=== PATIENT | male | born 1970 | race African-American/Black ===

== ENCOUNTER 2017-06-03 07:38 | Emergency (ER) | payer BC ==
[~2017-06-03] VITALS: Ht 180.3 cm; Wt 116.6 kg
[2017-06-03 08:10] LABS: HEMATOCRIT 44.1 % (38.0-50.0); MCH 27.2 PG (29.0-34.0); MCHC 33.1 G/DL (30.0-36.0); MCV 82.3 FL (86-99); RBC DIS.WIDTH-CV 13.1 % (11.8-14.6); RBC DIS.WIDTH-SD 39.1 % (39-53); RED BLOOD COUNT 5.36 M/uL (4.00-5.50); WHITE BLOOD COUNT 9.2 K/uL (4.1-10.2)
[2017-06-03 08:29] LABS: ANION GAP 7 MEQ/L (2-14); CHLORIDE 103 MEQ/L (99-109); POTASSIUM 4.5 MEQ/L (3.7-5.4); SAMPLE HEMOLYSIS CHECK 0; SAMPLE ICTERIC CHECK 0; SAMPLE LIPEMIA CHECK 0; SODIUM 137 MEQ/L (136-147)
[2017-06-03 08:35] LABS: GFR ESTIMATE (CALCULATED) > 59 mL/min/; GLUCOSE 94 mg/dL (70-99); UREA NITROGEN (BUN) 19 mg/dL (9-23)
[2017-06-03 08:39] LABS: TROP-I INTERPRETATION NEGATIVE; TROPONIN-I 0.02 ng/mL (0.0-0.30)
[2017-06-03 08:48] LABS: MEAN PLAT.VOLUME 10.6 uM^3 (9.0-12.4); PLAT.SUFFICIENCY ADEQUATE; PLATELET COUNT 229 K/uL (156-360)
[2017-06-03 09:00] VITALS: BP 140/84
== END 2017-06-03 09:12 | disposition home or self-care (01) ==
LOC: EME 07:38
PROVIDERS: Emergency Medicine
DX: M62.838 Other muscle spasm (principal); R07.89 Other chest pain; Y93.89 Activity, other specified
CPT/HCPCS: 71010; 80048; 84484; 85027; 93005; 99281; 99284